=== PATIENT | male | born 1995 | race Caucasian/White ===

== ENCOUNTER 2020-01-01 11:54 | Emergency (ER) | payer BC, OTHER ==
[2020-01-01 12:56] VITALS: BP 144/79
--- NOTE | 2020-01-01 13:07 | UC ---
Dental HPI - HPI Summary HPI Summary: 24-year-old male who complains of tooth and jaw pain which started over the past few days. He describes it as "it feels like a cut behind my tooth that's getting worse". - History of Current Complaint Chief Complaint: UCDentalProblem Stated Complaint: ORAL Time Seen by Provider: 01/01/20 12:49 Hx Obtained From: Patient Onset/Duration: Gradual Onset, Lasting Days Severity: Moderate Pain Intensity: 7 Aggravating Factor(s): Chewing Alleviating Factor(s): Nothing - Allergies/Home Medications Allergies/Adverse Reactions: Allergies Allergy/AdvReac Type Severity Reaction Status Date / Time No Known Allergies Allergy Verified 01/01/20 12:47 Home Medications: Home Medications Dextroamphetamine/Amphetamine [Adderall 20 mg Tablet] 1 tab PO BID 01/01/20 [ History Confirmed 01/01/20] Escitalopram * [Lexapro *] 20 mg PO DAILY 01/01/20 [History Confirmed 01/01/20] Ibuprofen TAB* [Advil TAB*] 400 mg PO Q6H PRN 01/01/20 [History Confirmed ] PMH/Surg Hx/FS Hx/Imm Hx Previously Healthy: Yes - Surgical History Surgical History: None - Family History Known Family History: Positive: Non-Contributory - Social History Occupation: Employed Full-time Alcohol Use: Occasionally Substance Use Type: None Smoking Status (MU): Former Smoker When Did the Patient Quit Smoking/Using Tobacco: past week Review of Systems All Other Systems Reviewed And Are Negative: Yes ENT: Positive: Dental Pain Is Patient Immunocompromised?: No Physical Exam Triage Information Reviewed: Yes Appearance: Well-Appearing, No Pain Distress, Well-Nourished Vital Signs: Initial Vital Signs Temp 98.9 F 01/01/20 12:49 Pulse 84 01/01/20 12:49 Resp 16 01/01/20 12:49 BP 144/79 01/01/20 12:49 Pulse Ox 100 01/01/20 12:49 Vital Signs Reviewed: Yes Eyes: Positive: Conjunctiva Clear ENT: Positive: Pharynx normal, TMs normal, Uvula midline Dental: Positive: Other: - The right lower distal molar is actually causing an ulceration and infection of the patient's gumline and buccal mucosa. No active drainage, no abscess formation, the areas and mildly erythematous. Neck: Positive: Supple, Nontender, Enlarged Nodes @ - Right tonsillar lymph node enlargement with mild tenderness. Respiratory: Positive: Lungs clear, Normal breath sounds, No respiratory distress, No accessory muscle use Cardiovascular: Positive: RRR, No Murmur, Pulses Normal, Brisk Capillary Refill Musculoskeletal Exam: Normal Neurological Exam: Normal Psychological Exam: Normal Skin Exam: Normal Skin: Positive: Other - See above notes Dental Complaint Course/Dx - Course Course Of Treatment: I attempted to make an appointment with the oral surgeon Dr. Jauregui, however the office is on lunch. The patient was given instructions and the phone number to call after 2:00 today to make a point to be seen either today or tomorrow. - Differential Dx/Diagnosis Provider Diagnosis: Blister of gum with infection Discharge ED - Sign-Out/Discharge Documenting (check all that apply): Patient Departure All imaging exams completed and their final reports reviewed: No Studies - Discharge Plan Condition: Fair Disposition: HOME Prescriptions: Amoxicillin/Clavulanate TAB* [Augmentin TAB 875*] 875 mg PO BID 10 Days #20 tab Patient Education Materials: Wound Infection (ED) Referrals: Noreen Mccullough MD [Primary Care Provider] - Adrien Lynn DMD [Doctor of Dental Medicine] - Additional Instructions: Take the Augmentin with food. Call the oral surgeon today and make an appointment to be seen either this afternoon or tomorrow. Tell them your lower right wisdom tooth is cutting into your gum and cheek and causing an infection and we advised that should be rechecked today or tomorrow. - Billing Disposition and Condition Condition: FAIR Disposition: Home
== END 2020-01-01 13:19 | disposition home or self-care (01) ==
LOC: UCCORT 11:54
DX: S00.522A Blister (nonthermal) of oral cavity, initial encounter (principal); L08.9 Local infection of the skin and subcutaneous tissue, unspecified; Z87.891 Personal history of nicotine dependence; X58.XXXA Exposure to other specified factors, initial encounter; Y92.9 Unspecified place or not applicable
CPT/HCPCS: 99202; G0463